=== PATIENT | male | born 1975 | race Hispanic/Latino ===

== ENCOUNTER 2020-03-20 12:00 | Observation (INO) | payer OTHER ==
[~2020-03-20] VITALS: Ht 160 cm; Wt 102.1 kg
[2020-03-20 13:03] LABS: BASOPHILS % (AUTO) 0.4 % (0.0-5.0); HEMATOCRIT 47.2 % (42-54); LYMPHOCYTES % (AUTO) 49.3 % (21.0-51.0); MEAN CORPUSCULAR HEMOGLOBIN 30.8 pg (27.0-33.0); MEAN CORPUSCULAR HGB CONC 33.5 g/dL (32.0-36.0); PLATELET COUNT (AUTO) 256 K/uL (130-400); RED BLOOD CELL COUNT(AUTO) 5.13 MIL/uL (4.50-6.20); RED CELL DISTRIBUTION WIDTH 13.2 % (11.0-15.5); WHITE BLOOD COUNT (AUTO) 9.7 K/uL (4.8-10.8)
[2020-03-20 13:15] LABS: POTASSIUM 3.7 mmol/L (3.5-5.1)
[2020-03-22 09:53] VITALS: BP 150/92
[2020-03-22] MEDS ORDERED: GABA-531 PO (10:14)
[2020-03-22] MEDS: CEFAZOLIN SODIUM 1 GM VIAL IVP SCH (14:00)
[2020-03-22] MEDS ORDERED: LOSA50TA64 PO (14:29)
[2020-03-23] VITALS (27 sets, daily range): BP systolic 106–162; BP diastolic 66–99
[2020-03-23] MEDS: CEFAZOLIN SODIUM 1 GM VIAL IVP SCH ×3 (07:00→14:00)
[2020-03-23] MEDS ORDERED: MIDAZOLAM HCL 1 MG/ML 2ML VIAL ONE ×2 (07:04→08:27)
[2020-03-23] MEDS ORDERED: FENTANYL CITRATE PF 50 MCG/1 ML 2ML VIAL ONE ×4 (07:04→11:21)
[2020-03-23] MEDS ORDERED: ONDANSETRON HCL 4 MG/2 ML VIAL ONE (07:05)
[2020-03-23] MEDS ORDERED: DEXAMETHASONE SOD PHOSPHATE 10MG/ML 1ML VIAL ONE (07:05)
[2020-03-23] MEDS ORDERED: PHENYLEPHRINE HCL 10 MG/ML 1ML VIAL IV ONE (07:06)
[2020-03-23] MEDS ORDERED: ROCURONIUM 10MG/1ML SYR 10 MG/ML ML ONE ×2 (07:06→09:16)
[2020-03-23] MEDS ORDERED: LACTATED RINGERS 1000ML 1,000 ML IV ONE (07:16)
[2020-03-23] MEDS ORDERED: BUPIVACAINE/EPI/PF 0.25% 30ML VIAL IJ ONE (07:56)
[2020-03-23] MEDS ORDERED: THROMBIN-JMI 20000 UNIT KIT TP ONE (07:56)
[2020-03-23] MEDS ORDERED: CEFAZOLIN SODIUM 1 GM VIAL ONE (07:56)
[2020-03-23] MEDS ORDERED: HYDROCODONE/ACETAMINOPHEN 5/325 MG TAB PO PRN (11:45)
[2020-03-23] MEDS ORDERED: MORPHINE SULFATE 2 MG/ML 1ML SYG IVP PRN (11:45)
[2020-03-23] MEDS ORDERED: CEFAZOLIN SODIUM 1 GM VIAL IVP SCH (11:45)
[2020-03-23] MEDS: DEXAMETHASONE SOD PHOSPHATE 4 MG/ML 1ML VIAL IVP SCH ×3 (11:45→23:55)
[2020-03-23] MEDS ORDERED: SODIUM CHLORIDE 0.9% 10 ML VIAL IVP PRN (11:45)
[2020-03-23] MEDS: LACTATED RINGERS 1000ML 1,000 ML IV SCH ×3 (13:52→23:41)
[2020-03-23] MEDS: GABAPENTIN 300 MG CAPSULE PO SCH ×2 (14:00→20:37)
[2020-03-23] MEDS: PROMETHAZINE HCL 25 MG/ML 1ML AMPULE IM PRN ×2 (14:03→17:51)
[2020-03-24 03:49] VITALS: BP 136/85
--- NOTE | 2020-03-24 05:00 | NUR ---
ROUNDS PATIENT AWAKE AND ALERT SITTING UP TO CHAIR. NO COMPLAINTS OF PAIN VOICED. AMBULATING. DURAN CATHETER DISCONTINUED AND VOIDING WITHOUT DIFFICULTY. RESP EVEN AND UNLABORED. NO SOB NOTED. VITALS STABLE. AFEBRILE. IN GOOD SPIRITS. SOFT COLLAR ON. NO SIGNS OF DISTRESS NOTED. CALL LIGHT WITHIN REACH. WILL CONTINUE TO BE OBSERVED. Addendum: 03/24/20 at [id number] by XAVIER WOOTEN RN RN Amended: Links added.
[2020-03-24] MEDS: DEXAMETHASONE SOD PHOSPHATE 4 MG/ML 1ML VIAL IVP SCH (05:56)
[2020-03-24 07:30] VITALS: BP 157/96
--- NOTE | 2020-03-24 07:30 | NUR ---
VISITED WITH PATIENT. POC DISCUSSED. NEW ORDERS RECEIVED FOR DISCHARGE AND CARRIED OUT. PATIENT AWARE. WILL CONTINUE TO BE OBSERVED. Addendum: 03/24/20 at 0759 by XAVIER WOOTEN RN RN Amended: Links added.
[2020-03-24] MEDS: GABAPENTIN 300 MG CAPSULE PO SCH (08:46)
[2020-03-24] MEDS ORDERED: LOSARTAN 50 MG TABLET PO SCH (09:00)
--- NOTE | 2020-03-24 09:12 | NUR ---
INSTRUCTIONS DISCHARGE INSTRUCTIONS GIVEN TO PATIENT USING TEACH BACK. F/U APPOINTMENT MADE. IV REMOVED WITH TIP INTACT. NEW PRESCRIPTION PLACED IN CHART ALONG WITH ALL PRINTED INFORMATION AND MD INSTRUCTIONS. DRESSING CHANGE PER MD ORDERS. NO QUESTIONS OR CONCERNS VOICED.
--- NOTE | 2020-03-24 11:31 | NUR ---
CM NOTE SCHEDULED PROCEDURE, NO TRIGGERS TO CM, NO CONCERNS VOICED BY NEAL OR PT, DETAILED CM ASSESSMENT DEFERRED Addendum: 03/24/20 at 1132 by WAGNER NICE RN CM Amended: Links added.
== END 2020-03-24 09:15 | disposition home or self-care (01) ==
LOC: EDSTATUS 12:00 → DAHIP 03-23 06:40 → EDSTATUS 03-23 12:00 → 3DH 03-23 13:27
PROVIDERS: ADMIT Neurological Surgery; ATTEND Neurological Surgery
DX: M25.78 Osteophyte, vertebrae (principal); M54.12 Radiculopathy, cervical region; M79.602 Pain in left arm; R53.1 Weakness
CPT/HCPCS: 20930; 22551; 22845; 36415; 71045; 72020; 80051; 85025; 93005; 96372; 96374; 96375; 96376 ×2; A4213; A4215; A4216; A4222; A4223 ×2; A4344; A4600; A4649 ×2; A4663; C1776; G0378 ×20; J0690 ×4; J1100 ×4; J2250 ×2; J2370; J2405; J2550 ×2; J3010 ×4; J3490; J7030; J7120 ×2

== ENCOUNTER → 2020-04-17 | Outpatient (CLI) | payer OTHER ==
[~2020-04-17] MED LIST: GABA-531 PO; LOSA50TA64 PO
== END | disposition home or self-care (01) ==
LOC: OIH 08:56
PROVIDERS: ATTEND Neurological Surgery
DX: M47.812 Spondylosis without myelopathy or radiculopathy, cervical region (principal); M43.22 Fusion of spine, cervical region; G95.89 Other specified diseases of spinal cord
CPT/HCPCS: 72040